=== PATIENT | male | born 1935 | race Caucasian/White ===

== ENCOUNTER 2017-08-30 06:20 | Day surgery (SDC) | payer MEDICARE, OTHER ==
[~2017-08-30] VITALS: Ht 177.8 cm; Wt 84.0 kg
[~2017-08-30 06:20] MED LIST: ATEN25 PO; BOSWELLIA SERRAT1 GM MC; Coq-10100 MG PO; FISH1000 PO; FOLGARD TABLET1 EACH PO; OMEP10ER PO; WARF5 PO; WARF7.5 PO
== END 2017-08-30 12:30 | disposition home or self-care (01) ==
LOC: ORSCSDS 06:20
PROVIDERS: Orthopaedic Surgery
PROC: 0RNJ4ZZ Release Right Shoulder Joint, Percutaneous Endoscopic Approach (ICD-10-PCS; principal; 2017-08-30 07:30)
PROC: 0LS14ZZ Reposition Right Shoulder Tendon, Percutaneous Endoscopic Approach (ICD-10-PCS; principal; 2017-08-30 07:30)
PROC: 0LQ14ZZ Repair Right Shoulder Tendon, Percutaneous Endoscopic Approach (ICD-10-PCS; principal; 2017-08-30 07:30)
DX: M75.121 Complete rotator cuff tear or rupture of right shoulder, not specified as traumatic (principal); M75.41 Impingement syndrome of right shoulder; M75.21 Bicipital tendinitis, right shoulder; I10 Essential (primary) hypertension; G47.33 Obstructive sleep apnea (adult) (pediatric); K21.9 Gastro-esophageal reflux disease without esophagitis; I48.91 Unspecified atrial fibrillation; E78.5 Hyperlipidemia, unspecified; Z79.01 Long term (current) use of anticoagulants; Z79.899 Other long term (current) drug therapy
CPT/HCPCS: C1713; J0171; J0690; J2250; J3010

== ENCOUNTER 2017-12-20 07:10 | Day surgery (SDC) | payer MEDICARE, OTHER ==
[~2017-12-20] VITALS: Ht 177.8 cm; Wt 85.4 kg
[2017-12-20] MEDS ORDERED: MAGCHL64ER (08:09)
[2017-12-20] MEDS ORDERED: BOSWELLIA SERRAT1 GM (08:09)
[2017-12-20 08:39] LABS: International Normalized Ratio 2.61; Prothrombin Time Results 25.5 Sec (9.7-11.5)
== END 2017-12-20 08:55 | disposition home or self-care (01) ==
LOC: ORSCSDS 07:10
PROVIDERS: Orthopaedic Surgery
DX: M65.322 Trigger finger, left index finger (principal); M65.321 Trigger finger, right index finger; Z79.01 Long term (current) use of anticoagulants; Z53.9 Procedure and treatment not carried out, unspecified reason
CPT/HCPCS: 85610; J0690; J2250; J3010; J7120

== ENCOUNTER 2017-12-27 06:14 | Day surgery (SDC) | payer MEDICARE, OTHER ==
[~2017-12-27] VITALS: Ht 175.3 cm; Wt 83.5 kg
[~2017-12-27 06:14] MED LIST changes: +BOSWELLIA SERRAT1 GM; +MAGCHL64ER
== END 2017-12-27 09:00 | disposition home or self-care (01) ==
LOC: ORSCSDS 06:14
PROVIDERS: Orthopaedic Surgery
PROC: 0LN80ZZ Release Left Hand Tendon, Open Approach (ICD-10-PCS; principal; 2017-12-27 07:30)
PROC: 0LN70ZZ Release Right Hand Tendon, Open Approach (ICD-10-PCS; principal; 2017-12-27 07:30)
DX: M65.322 Trigger finger, left index finger (principal); M65.321 Trigger finger, right index finger; I10 Essential (primary) hypertension; I48.0 Paroxysmal atrial fibrillation; E78.5 Hyperlipidemia, unspecified; G47.33 Obstructive sleep apnea (adult) (pediatric); Z87.891 Personal history of nicotine dependence; Z79.01 Long term (current) use of anticoagulants; Z79.899 Other long term (current) drug therapy
CPT/HCPCS: J0690; J2250; J2405; J3010; J7120

== ENCOUNTER → 2019-09-12 | Outpatient (CLI) | payer MEDICARE | END | disposition home or self-care (01) | LOC: LAB 16:51 → LAB SHORT 16:51 | DX: R30.0 Dysuria (principal) | CPT/HCPCS: 87077; 87086; 87186 ==

== ENCOUNTER → 2020-01-01 | Outpatient (CLI) | payer MEDICARE, OTHER | END | disposition home or self-care (01) | LOC: LAB SHORT 12:56 → LAB 12:56 | DX: R30.0 Dysuria (principal) | CPT/HCPCS: 87077; 87086; 87186 ==

== ENCOUNTER 2020-06-18 09:00 | Day surgery (SDC) | payer MEDICARE ==
[~2020-06-18] VITALS: Ht 177.8 cm; Wt 82.0 kg
[~2020-06-18 09:00] MED LIST changes: +CEPH500 PO; +ELIQUIS2.5 MG PO; +FLUDROCORTISON0.1 MG PO; -OMEP10ER PO; +OMEP20ER PO; +POTCHL20ER PO; +Tylenol325 MG PO
--- NOTE | 2020-06-18 10:14 | NUR ---
Echocardiogram completed.
[2020-06-18] MEDS ORDERED: ELIQUIS2.5 MG PO (10:16)
[2020-06-18] MEDS ORDERED: COENZYME Q10100 MG PO (10:17)
[2020-06-18] MEDS ORDERED: VITAMIN D32000 UNI1 PO (10:17)
[2020-06-18] MEDS ORDERED: COSOPT EYE DROP10 ML BOTHEYES (10:19)
[2020-06-18] MEDS ORDERED: FLONASE ALLERG9.9 M2 (10:21)
[2020-06-18] MEDS ORDERED: LATANOPROST2.5 M2 BOTHEYES (10:23)
[2020-06-18] MEDS ORDERED: MAGNESIUM OXID500 MG PO (10:23)
[2020-06-18] MEDS ORDERED: MELATONIN1010 PO (10:24)
[2020-06-18] MEDS ORDERED: OMEP20ER PO (10:25)
[2020-06-18] MEDS ORDERED: POTCHL20ER PO (10:25)
[2020-06-18] MEDS ORDERED: AMBIEN5 MG PO (10:26)
[2020-06-18] MEDS ORDERED: TRAVOPROST2.5 ML BOTHEYES (10:26)
[2020-06-18] MEDS ORDERED: RED YEAST PO (10:27)
--- NOTE | 2020-06-18 11:15 | NUR ---
PT AWAKE AND CONVERSING POST PROCEDURE, DENEIS PAIN. PT IN PACED RHYTHM 70'S, SPO2 93-94% RA.
--- NOTE | 2020-06-18 11:55 | NUR ---
PT RECEIVED DISCHARGE INSTRUCTIONS, MED LIST AND AFTER CARE INSTRUCTIONS; VERBALIZED GOOD UNDERSTANDING. PT'S WAS INFORMED OF DISCHARGE INSTRUCTIONS BY PHONE WITH PT CONSENT. PT WAITING IN HC RECOVERY ROOM FOR TO ARRIVE.
== END 2020-06-18 12:30 | disposition home or self-care (01) ==
LOC: MHTC 09:00 → ORSCMMR 09:00 → MHTC 09:01
DX: I48.0 Paroxysmal atrial fibrillation (principal); I35.0 Nonrheumatic aortic (valve) stenosis; E78.5 Hyperlipidemia, unspecified; G47.33 Obstructive sleep apnea (adult) (pediatric); C61 Malignant neoplasm of prostate; Z95.0 Presence of cardiac pacemaker; Z88.1 Allergy status to other antibiotic agents; Z88.8 Allergy status to other drugs, medicaments and biological substances
CPT/HCPCS: 93312; 93325; A9270; J2405; J2704; J7030

== ENCOUNTER 2020-09-21 07:40 | Day surgery (SDC) | payer MEDICARE ==
[~2020-09-21] VITALS: Ht 177.8 cm; Wt 81.8 kg
[~2020-09-21 07:40] MED LIST changes: +AMBIEN5 MG PO; +COENZYME Q10100 MG PO; +COSOPT EYE DROP10 ML BOTHEYES; +FLONASE ALLERG9.9 M2; +LATANOPROST2.5 M2 BOTHEYES; +MAGNESIUM OXID500 MG PO; +MELATONIN1010 PO; +RED YEAST PO; +TRAVOPROST2.5 ML BOTHEYES; +VITAMIN D32000 UNI1 PO
[2020-09-21] MEDS ORDERED: AMIODARONE HCL200 M1 PO (09:15)
[2020-09-21] MEDS ORDERED: COSOPT PF EYE1 EACH OP (09:17)
[2020-09-21] MEDS ORDERED: IPRATROPIUM BRO30 ML NS (09:19)
[2020-09-21] MEDS ORDERED: XALATAN2.5 ML BOTHEYES (09:19)
--- NOTE | 2020-09-21 10:35 | NUR ---
IV DC'D, CATH INTACT. PT HAS VERBALIZED UNDERSTANDING OF DC INSTRUCTIONS AND FOLLOW UP INFORMATION. TOLERATED APPLE JUICE AND PUDDING WITHOUT ANY DIFFICULTY PRIOR TO DISCHARGE. OUT TO CAR VIA WHEELCHAIR.
== END 2020-09-21 22:57 | disposition home or self-care (01) ==
LOC: MHTC 07:40
DX: I48.0 Paroxysmal atrial fibrillation (principal); I70.0 Atherosclerosis of aorta; I08.3 Combined rheumatic disorders of mitral, aortic and tricuspid valves; Z88.8 Allergy status to other drugs, medicaments and biological substances; Z88.1 Allergy status to other antibiotic agents
CPT/HCPCS: 36415; 80048; 85025; 85610; 93312; 93325; A9270; J2405; J2704; J7030

== ENCOUNTER → 2020-11-03 | Outpatient (CLI) | payer MEDICARE ==
[~2020-11-03] MED LIST changes: +AMIODARONE HCL200 M1 PO; +COSOPT PF EYE1 EACH OP; +IPRATROPIUM BRO30 ML NS; +XALATAN2.5 ML BOTHEYES
== END ==
LOC: LAB SHORT 11:39 → LAB 11:39
DX: D48.5 Neoplasm of uncertain behavior of skin (principal)
CPT/HCPCS: 88305

== ENCOUNTER → 2021-08-04 | Outpatient (CLI) | payer MEDICARE | END | disposition home or self-care (01) | LOC: LAB 18:53 → LAB SHORT 18:53 | DX: N39.0 Urinary tract infection, site not specified (principal) | CPT/HCPCS: 87086 ==

== ENCOUNTER 2021-09-03 09:08 | Day surgery (SDC) | payer MEDICARE ==
[~2021-09-03] VITALS: Ht 177.8 cm; Wt 81.8 kg
--- NOTE | 2021-09-03 10:59 | NUR ---
PATIENT IS POST RAYMOND, RECOVERING IN ROOM WITH RN AT BEDSIDE. VVS ON MONITOR. RESITING ON LEFT SIDE WITH OXYGEN 3L IN PLACE. SATURATION 100%. WAKES WITH STIMULATION BUT FALLS ASLEEP EASILY.
--- NOTE | 2021-09-03 11:19 | NUR ---
PATIENT STAYING AWAKE, ROOM AIR SATUATION 100%. NO PAIN NOTED. CALLED TO GIVEN HER ADVANCE NOTICE TO COME FOR DISCHARGE TO DRIVE PATIENT HOME. REVIEWED DISCHARGE INSTRUCTIONS AND FOLLOW UP APPOINTMENT ON SEPTEMBER 30, 2021 @ 0930. ALL QUESTIONS ANSWERED.
--- NOTE | 2021-09-03 12:08 | NUR ---
1145 PIV REMOVED, CATH TIP INTACT PRESSURE DRESSING APPLIED. PATIENT DRESSED AND ALL BELONGINGS GATHERED. GAMA MEMBRENO. DR. HERRERA SPOKE WITH THE PATIENT UPON DISCHARGE AND WILL FOLLOW UP ON September IN THE OFFICE. PATIENT DISCHARGED VIA WHEELCHAIR TO [facility].
== END 2021-09-03 23:00 | disposition home or self-care (01) ==
LOC: MHTC 09:08
DX: I48.0 Paroxysmal atrial fibrillation (principal); E78.5 Hyperlipidemia, unspecified; G47.33 Obstructive sleep apnea (adult) (pediatric); Z79.01 Long term (current) use of anticoagulants; Z95.0 Presence of cardiac pacemaker; Z88.6 Allergy status to analgesic agent; Z88.1 Allergy status to other antibiotic agents; Z88.8 Allergy status to other drugs, medicaments and biological substances; I35.0 Nonrheumatic aortic (valve) stenosis
CPT/HCPCS: 93312; 93325; A9270; J2704; J7030

== ENCOUNTER → 2021-10-12 | Outpatient (CLI) | payer MEDICARE ==
[2021-10-12 10:11] LABS: Source, Urine Straight Cath
[2021-10-12 10:21] LABS: Bacteria Mod /hpf; Renal Epithelial Few /hpf (0-Rare); Squamous Epithelial Cells Few /hpf (Few)
== END ==
LOC: LAB SHORT 10:09
PROVIDERS: Physician Assistant Medical
DX: R33.9 Retention of urine, unspecified (principal); N39.0 Urinary tract infection, site not specified
CPT/HCPCS: 81015

== ENCOUNTER → 2021-10-13 | Outpatient (CLI) | payer MEDICARE | END | disposition home or self-care (01) | LOC: LAB 16:19 → LAB SHORT 16:19 | DX: R10.30 Lower abdominal pain, unspecified (principal) | CPT/HCPCS: 87070; 87075; 87205 ==

== ENCOUNTER 2021-11-04 22:56 | Emergency (ER) | payer MEDICARE ==
[~2021-11-04] VITALS: Ht 177.8 cm; Wt 81.7 kg
== END 2021-11-05 00:13 | disposition home or self-care (01) ==
LOC: ER 22:56
DX: T83.090A Other mechanical complication of cystostomy catheter, initial encounter (principal); I10 Essential (primary) hypertension; I48.91 Unspecified atrial fibrillation; Z79.899 Other long term (current) drug therapy; Z88.6 Allergy status to analgesic agent; Z88.1 Allergy status to other antibiotic agents; Z88.8 Allergy status to other drugs, medicaments and biological substances; Y82.9 Unspecified medical devices associated with adverse incidents; Z95.0 Presence of cardiac pacemaker
CPT/HCPCS: 51705; 99283-25; C2627

== ENCOUNTER → 2021-11-30 | Outpatient (CLI) | payer MEDICARE ==
[2021-11-30 17:15] LABS: Source, Urine Clean Catch
[2021-11-30 17:18] LABS: Bacteria Not Seen /hpf; Squamous Epithelial Cells Rare /hpf (Few); White Blood Cells, Urine 50-100 /hpf (0-5)
== END | disposition home or self-care (01) ==
LOC: LAB SHORT 17:08 → LAB 17:08
PROVIDERS: Physician Assistant
DX: T83.198A Other mechanical complication of other urinary devices and implants, initial encounter (principal); R82.90 Unspecified abnormal findings in urine
CPT/HCPCS: 81015

== ENCOUNTER → 2023-03-07 | Outpatient (CLI) | payer MEDICARE, OTHER ==
[2023-03-07 09:44] LABS: Source, Urine Suprapubic Cath
[2023-03-07 10:44] LABS: Bilirubin, Urine Neg (Neg); Blood, Urine 5+ (Neg); Glucose Qualitative, Urine Neg (Neg); Ketones, Urine Neg (Neg); Leukocyte Esterase, Urine 3+ (Neg); Nitrite, Urine Pos (Neg); Protein, Urine 2+ (Neg); Specific Gravity, Urine 1.015 (1.003-1.022); Urobilinogen, Urine NORM (Normal)
[2023-03-07 10:55] LABS: Appearance, Urine Hazy (Clear); Color, Urine Yellow (P-Yellow); Squamous Epithelial Cells Rare /hpf (Few); White Blood Cells, Urine 25-50 /hpf (0-5)
[2023-03-07 10:56] LABS: Bacteria Few /hpf
[2023-03-07 13:32] LABS: BASOPHILS ABSOLUTE AUTO 0.03 K/mm3 (0.00-0.23); BASOPHILS PERCENT AUTO 0 % (0-2); EOSINOPHILS ABSOLUTE AUTO 0.68 K/mm3 (0.00-0.68); EOSINOPHILS PERCENT AUTO 6 % (0-6); Hematocrit 33.2 % (37.0-53.0); Hemoglobin 11.2 g/dL (13.5-17.5); IMMATURE GRAN ABSOLUTE AUTO 0.04 K/mm3 (0.00-0.10); IMMATURE GRAN PERCENT AUTO 0 % (0-1); LYMPHOCYTES ABSOLUTE AUTO 1.71 K/mm3 (0.84-5.20); LYMPHOCYTES PERCENT AUTO 14 % (21-46); MONOCYTES ABSOLUTE AUTO 0.71 K/mm3 (0.16-1.47); MONOCYTES PERCENT AUTO 6 % (4-13); Mean Corpuscular HGB 31.8 pg (26.0-34.0); Mean Corpuscular HGB Conc 33.7 g/dL (31.5-36.5); Mean Corpuscular Volume 94 fL (80-100); Mean Platelet Volume 11.1 fL (9.1-12.4); NEUTROPHILS ABSOLUTE AUTO 8.97 K/mm3 (1.96-9.15); NEUTROPHILS PERCENT AUTO 74 % (41-73); Platelet Count 288 K/mm3 (150-400); RDW Coefficient Variation 13.2 % (11.7-14.2); RDW Standard Deviation 45.6 fL (35.1-46.3); Red Blood Cell Count 3.52 M/mm3 (4.30-5.90); White Blood Cell Count 12.14 K/mm3 (4.00-11.30)
== END | disposition home or self-care (01) ==
LOC: LAB 09:40 → LAB SHORT 09:40 → LAB FUT 02-28 11:05 → EDSTATUS 02-28 11:05
PROVIDERS: Specialist
DX: N39.0 Urinary tract infection, site not specified (principal)
CPT/HCPCS: 36415; 81001; 85025; 87086

== ENCOUNTER → 2023-03-22 | Outpatient (CLI) | payer MEDICARE, OTHER ==
[2023-03-22 14:44] LABS: Source, Urine Voided
[2023-03-22 15:35] LABS: Appearance, Urine Hazy (Clear); Bilirubin, Urine Neg (Neg); Blood, Urine 4+ (Neg); Color, Urine Yellow (P-Yellow); Glucose Qualitative, Urine Neg (Neg); Ketones, Urine Neg (Neg); Leukocyte Esterase, Urine 3+ (Neg); Nitrite, Urine Neg (Neg); Protein, Urine 3+ (Neg); Specific Gravity, Urine 1.015 (1.003-1.022); Urobilinogen, Urine NORM (Normal)
[2023-03-22 15:55] LABS: Bacteria Rare /hpf; Squamous Epithelial Cells Few /hpf (Few)
== END | disposition home or self-care (01) ==
LOC: LAB 06:00 → LAB SHORT 06:00
PROVIDERS: Specialist
DX: N39.0 Urinary tract infection, site not specified (principal)
CPT/HCPCS: 81001; 87077; 87086; 87186

== ENCOUNTER → 2023-05-22 | Outpatient (CLI) | payer MEDICARE, OTHER ==
[2023-05-22 11:23] LABS: Source, Urine Suprapubic Cath
[2023-05-22 12:37] LABS: Appearance, Urine Hazy (Clear); Bilirubin, Urine Neg (Neg); Blood, Urine 4+ (Neg); Color, Urine Yellow (P-Yellow); Glucose Qualitative, Urine Neg (Neg); Ketones, Urine Neg (Neg); Leukocyte Esterase, Urine 3+ (Neg); Nitrite, Urine Neg (Neg); Protein, Urine 2+ (Neg); Specific Gravity, Urine 1.015 (1.003-1.022); Urobilinogen, Urine NORM (Normal)
[2023-05-22 13:09] LABS: Amorphous Light (0-Heavy); Bacteria Many /hpf; Red Blood Cells, Urine 25-50 /hpf (0-2); Squamous Epithelial Cells Few /hpf (Few); White Blood Cells, Urine 50-100 /hpf (0-5)
== END | disposition home or self-care (01) ==
LOC: LAB SHORT 11:00 → LAB 11:00
PROVIDERS: Specialist
DX: N39.0 Urinary tract infection, site not specified (principal)
CPT/HCPCS: 81001; 87086

== ENCOUNTER → 2023-05-25 | Outpatient (CLI) | payer MEDICARE, OTHER ==
[2023-05-25 11:03] LABS: Source, Urine Suprapubic Cath
[2023-05-25 13:24] LABS: Appearance, Urine Hazy (Clear); Bilirubin, Urine Neg (Neg); Blood, Urine 5+ (Neg); Color, Urine Yellow (P-Yellow); Glucose Qualitative, Urine Neg (Neg); Ketones, Urine Neg (Neg); Leukocyte Esterase, Urine 2+ (Neg); Nitrite, Urine Neg (Neg); Protein, Urine 1+ (Neg); Specific Gravity, Urine 1.005 (1.003-1.022); Urobilinogen, Urine NORM (Normal)
[2023-05-25 13:46] LABS: Bacteria Few /hpf; Squamous Epithelial Cells Not Seen /hpf (Few)
== END ==
LOC: LAB 10:57 → LAB SHORT 10:57
PROVIDERS: Specialist
DX: N39.0 Urinary tract infection, site not specified (principal)
CPT/HCPCS: 81001; 87086

== ENCOUNTER → 2023-10-27 | Outpatient (CLI) | payer MEDICARE, OTHER | LOC: LAB SHORT 12:46 → LAB 12:46 | DX: N39.0 Urinary tract infection, site not specified (principal) | CPT/HCPCS: 87077; 87086; 87186 ==

== ENCOUNTER 2023-11-07 00:49 | Day surgery (SDC) | payer MEDICARE, OTHER | END 2023-11-07 22:43 | disposition home or self-care (01) | LOC: HBO 00:49 | DX: N30.41 Irradiation cystitis with hematuria (principal); L59.9 Disorder of the skin and subcutaneous tissue related to radiation, unspecified | CPT/HCPCS: G0277 ==

== ENCOUNTER 2023-11-08 03:54 | Day surgery (SDC) | payer MEDICARE, OTHER | END 2023-11-08 22:42 | disposition home or self-care (01) | LOC: HBO 03:54 | DX: N30.41 Irradiation cystitis with hematuria (principal); L59.9 Disorder of the skin and subcutaneous tissue related to radiation, unspecified | CPT/HCPCS: G0277 ==

== ENCOUNTER 2023-11-09 03:21 | Day surgery (SDC) | payer MEDICARE, OTHER | END 2023-11-09 22:49 | disposition home or self-care (01) | LOC: HBO 03:21 | DX: N30.41 Irradiation cystitis with hematuria (principal); L59.9 Disorder of the skin and subcutaneous tissue related to radiation, unspecified | CPT/HCPCS: G0277 ==

== ENCOUNTER 2023-11-10 03:09 | Day surgery (SDC) | payer MEDICARE, OTHER | END 2023-11-10 23:11 | disposition home or self-care (01) | LOC: HBO 03:09 | DX: N30.41 Irradiation cystitis with hematuria (principal); L59.9 Disorder of the skin and subcutaneous tissue related to radiation, unspecified | CPT/HCPCS: G0277 ==

== ENCOUNTER 2023-11-13 02:23 | Day surgery (SDC) | payer MEDICARE, OTHER | END 2023-11-13 23:22 | disposition home or self-care (01) | LOC: HBO 02:23 | DX: N30.41 Irradiation cystitis with hematuria (principal); L59.9 Disorder of the skin and subcutaneous tissue related to radiation, unspecified | CPT/HCPCS: G0277 ==

== ENCOUNTER 2023-11-14 00:58 | Day surgery (SDC) | payer MEDICARE, OTHER | END 2023-11-14 23:06 | disposition home or self-care (01) | LOC: HBO | DX: N30.41 Irradiation cystitis with hematuria (principal); L59.9 Disorder of the skin and subcutaneous tissue related to radiation, unspecified | CPT/HCPCS: G0277 ==

== ENCOUNTER 2023-11-17 02:23 | Day surgery (SDC) | payer MEDICARE, OTHER | END 2023-11-17 23:14 | disposition home or self-care (01) | LOC: HBO | DX: N30.41 Irradiation cystitis with hematuria (principal); L59.9 Disorder of the skin and subcutaneous tissue related to radiation, unspecified | CPT/HCPCS: G0277 ==

== ENCOUNTER 2023-11-20 01:52 | Day surgery (SDC) | payer MEDICARE, OTHER | END 2023-11-20 04:24 | disposition home or self-care (01) | LOC: HBO 01:52 | DX: N30.41 Irradiation cystitis with hematuria (principal); L59.9 Disorder of the skin and subcutaneous tissue related to radiation, unspecified | CPT/HCPCS: G0277 ==

== ENCOUNTER 2023-11-21 08:00 | Day surgery (SDC) | payer MEDICARE, OTHER | END 2023-11-22 22:54 | disposition home or self-care (01) | LOC: HBO 08:00 | DX: N30.41 Irradiation cystitis with hematuria (principal); L59.9 Disorder of the skin and subcutaneous tissue related to radiation, unspecified | CPT/HCPCS: G0277 ==

== ENCOUNTER 2023-11-22 01:58 | Day surgery (SDC) | payer MEDICARE, OTHER | END 2023-11-22 22:54 | disposition home or self-care (01) | LOC: HBO 01:58 | DX: N30.41 Irradiation cystitis with hematuria (principal); L59.9 Disorder of the skin and subcutaneous tissue related to radiation, unspecified | CPT/HCPCS: G0277 ==

== ENCOUNTER 2023-11-23 02:54 | Day surgery (SDC) | payer MEDICARE, OTHER | END 2023-11-23 23:08 | disposition home or self-care (01) | LOC: HBO 02:54 | DX: N30.41 Irradiation cystitis with hematuria (principal); L59.9 Disorder of the skin and subcutaneous tissue related to radiation, unspecified | CPT/HCPCS: G0277 ==

== ENCOUNTER → 2023-11-24 | Outpatient (CLI) | payer MEDICARE, OTHER ==
[2023-11-24 11:57] LABS: BASOPHILS ABSOLUTE AUTO 0.06 K/mm3 (0.00-0.23); BASOPHILS PERCENT AUTO 0 % (0-2); EOSINOPHILS ABSOLUTE AUTO 0.08 K/mm3 (0.00-0.68); EOSINOPHILS PERCENT AUTO 0 % (0-6); Hematocrit 32.5 % (37.0-53.0); IMMATURE GRAN ABSOLUTE AUTO 0.55 K/mm3 (0.00-0.10); IMMATURE GRAN PERCENT AUTO 2 % (0-1); LYMPHOCYTES ABSOLUTE AUTO 1.69 K/mm3 (0.84-5.20); LYMPHOCYTES PERCENT AUTO 6 % (21-46); MONOCYTES PERCENT AUTO 5 % (4-13); Mean Corpuscular HGB 32.2 pg (26.0-34.0); Mean Corpuscular HGB Conc 33.8 g/dL (31.5-36.5); Mean Corpuscular Volume 95 fL (80-100); Mean Platelet Volume 10.7 fL (9.1-12.4); NEUTROPHILS ABSOLUTE AUTO 25.33 K/mm3 (1.96-9.15); NEUTROPHILS PERCENT AUTO 87 % (41-73); Platelet Count 298 K/mm3 (150-400); RDW Coefficient Variation 13.2 % (11.7-14.2); RDW Standard Deviation 45.5 fL (35.1-46.3); Red Blood Cell Count 3.42 M/mm3 (4.30-5.90); White Blood Cell Count 29.21 K/mm3 (4.00-11.30)
[2023-11-24 12:12] LABS: Albumin/Globulin Ratio 0.7 (0.8-1.8); Calcium, Blood 9.1 mg/dL (8.5-10.1); Globulin, Blood 4.2 g/dL (2.2-4.0); Total Protein, Blood 7.2 g/dL (6.4-8.2)
[2023-11-24 12:28] LABS: BAND PERCENT MAN 10 % (0-8); BASOPHILS PERCENT MAN 0 % (0-2); EOSINOPHILS PERCENT MAN 0 % (0-6); LYMPHOCYTES ABSOLUTE MAN 1.46 K/mm3 (0.84-5.20); LYMPHOCYTES PERCENT MAN 5 % (21-46); MONOCYTES ABSOLUTE MAN 2.04 K/mm3 (0.16-1.47); MONOCYTES PERCENT MAN 7 % (4-13); SEG NEUTROPHILS PERCENT MAN 78 % (41-73); TOTAL CELLS COUNTED 100
[2023-11-24 13:40] LABS: Source, Urine Foley catheter
[2023-11-24 13:43] LABS: Appearance, Urine Hazy (Clear); Bilirubin, Urine Neg (Neg); Blood, Urine 2+ (Neg); Color, Urine Yellow (P-Yellow); Glucose Qualitative, Urine Neg (Normal); Ketones, Urine Neg (Neg); Leukocyte Esterase, Urine 2+ (Neg); Nitrite, Urine Neg (Neg); Protein, Urine 1+ (Neg); Urobilinogen, Urine NORM (Normal)
== END | disposition home or self-care (01) ==
LOC: LAB 11:50 → LAB SHORT 11:50
PROVIDERS: Family Medicine
DX: I44.0 Atrioventricular block, first degree (principal); D72.829 Elevated white blood cell count, unspecified; R53.1 Weakness
CPT/HCPCS: 80053; 83735; 84443; 85025; 87086

== ENCOUNTER → 2024-01-17 | Outpatient (CLI) | payer MEDICARE, OTHER ==
[2024-01-18 11:40] LABS: Stool Occult Bld Immuno 1 Negative (NEGATIVE)
== END ==
LOC: LAB SHORT 20:00 → LAB 20:00
PROVIDERS: Family Medicine
DX: R58 Hemorrhage, not elsewhere classified (principal)
CPT/HCPCS: 82274

== ENCOUNTER → 2024-02-28 | Outpatient (CLI) | payer MEDICARE, OTHER ==
[2024-02-28 16:17] LABS: Source, Urine Voided
[2024-02-28 17:27] LABS: Appearance, Urine Hazy (Clear); Bilirubin, Urine Neg (Neg); Blood, Urine 2+ (Neg); Color, Urine Yellow (P-Yellow); Glucose Qualitative, Urine Neg (Neg); Ketones, Urine Neg (Neg); Leukocyte Esterase, Urine 3+ (Neg); Nitrite, Urine Pos (Neg); Protein, Urine 2+ (Neg); Urobilinogen, Urine NORM (Normal)
[2024-02-28 17:52] LABS: Calcium Oxalate Crystals Rare /hpf; White Blood Cells, Urine TNTC /hpf (0-5)
[2024-02-28 17:53] LABS: Bacteria Many /hpf; Squamous Epithelial Cells Few /hpf (Few)
== END ==
LOC: LAB 16:14 → LAB SHORT 16:14
PROVIDERS: Family Medicine
DX: R31.29 Other microscopic hematuria (principal)
CPT/HCPCS: 81001; 87077; 87086; 87186

== ENCOUNTER 2024-08-04 17:56 | Emergency (ER) | payer OTHER ==
[~2024-08-04] VITALS: Ht 180.3 cm; Wt 72.6 kg
[2024-08-04 18:04] VITALS: BP 148/90
== END 2024-08-04 19:56 | disposition home or self-care (01) ==
LOC: ER 17:56
DX: R04.0 Epistaxis (principal); I48.91 Unspecified atrial fibrillation; I10 Essential (primary) hypertension; Z79.899 Other long term (current) drug therapy; Z88.6 Allergy status to analgesic agent; Z88.1 Allergy status to other antibiotic agents; Z88.5 Allergy status to narcotic agent; Z88.8 Allergy status to other drugs, medicaments and biological substances
CPT/HCPCS: 30901; 99283-25

== ENCOUNTER → 2024-09-12 | Outpatient (CLI) | payer OTHER | END | disposition home or self-care (01) | LOC: LAB 18:20 → LAB SHORT 18:20 | DX: N39.0 Urinary tract infection, site not specified (principal) | CPT/HCPCS: 87086 ==